=== PATIENT | male | born 1995 | race Caucasian/White ===

== ENCOUNTER 2025-07-11 20:18 | Emergency (ER) | payer MEDICAID ==
[~2025-07-11] VITALS: Ht 177.8 cm; Wt 90.1 kg
[~2025-07-11 20:18] MED LIST: ALBU10.7 IH; BUDE10.7 INH; LEXA5TAB13 PO; ONDA-83 PO; OXYC1TAB23 PO; TRAZ1TAB10 PO; TUMS500C PO; VENTAER INH
[2025-07-11] MEDS ORDERED: IPRATROPIUM 0.5 MG/ALBUTEROL 2.5 MG INH SOL UD 3 ML As Ordered ONE (20:56)
[2025-07-11] MEDS: IPRATROPIUM 0.5 MG/ALBUTEROL 2.5 MG INH SOL UD 3 ML NEB ONE ×2 (21:09→21:13)
[2025-07-11] MEDS ORDERED: ONDANSETRON 4MG/2ML VIAL As Ordered ONE (21:09)
[2025-07-11] MEDS: ACETAMINOPHEN *IV* 1,000 MG in IV 1 EA IV ONE (21:09)
[2025-07-11] MEDS: NS (Normal Saline) 0.9% 1,000 ML IV ONE (21:09)
[2025-07-11] MEDS: ONDANSETRON 4MG/2ML VIAL IV ONE (21:12)
[2025-07-11 21:34] LABS: KETONE, URINE AUTO RFX NEGATIVE (NEGATIVE); MUCUS, URINE RFX SMALL (NEGATIVE); NITRITE, URINE AUTO RFX NEGATIVE (NEGATIVE); RBC, URINE AUTO RFX TNTC /HPF (0-3); SQUAM EPITHELIAL CELL UR AURFX 0 /HPF (0-6)
[2025-07-11 21:35] LABS: LEUKOCYTE ESTERASE UR AUTO RFX 1+ (NEGATIVE); WBC, URINE AUTO RFX 14 /HPF (0-3)
[2025-07-11 21:39] LABS: BASO # 0.0 10^3/uL (0.0-0.2); BASO % 0.3 % (0.0-1.0); EOS # 0.1 10^3/uL (0.0-0.5); EOS % 1.3 % (0.0-3.0); LYMPH # 0.7 10^3/uL (1.5-5.0); LYMPH % 9.9 % (24.0-44.0); MONO # 0.9 10^3/uL (0.0-0.8); MONO % 13.1 % (2.0-8.0); NEUTROPHILS # 5.2 10^3/uL (1.5-8.5); NEUTROPHILS % 75.0 % (36.0-66.0); PLATELET COUNT, AUTOMATED 295 10^3/uL (150-450)
[2025-07-11 21:58] LABS: ALT/SGPT 17 U/L (7.0-40); AST/SGOT 15 U/L (<34); CALCIUM LEVEL 9.1 MG/DL (8.5-10.1); CARBON DIOXIDE LEVEL 20 MMOL/L (20-31); CHLORIDE LEVEL 106 MMOL/L (98-107); CREATININE FOR GFR 1.11 MG/DL (0.70-1.30); GLOMERULAR FILTRATION RATE > 90.0 (>60); POTASSIUM SERUM 3.5 MMOL/L (3.5-5.1); SODIUM LEVEL 138 MMOL/L (136-145)
[2025-07-11] MEDS ORDERED: PRED20TA PO (22:28)
[2025-07-11] MEDS ORDERED: OSEL75CA PO (22:28)
[2025-07-11] MEDS: OSELTAMIVIR PHOSPHATE 75 MG CAP PO ONE (22:59)
[2025-07-11] MEDS ORDERED: IPRA0.00 NEB (23:04)
[2025-07-11 23:18] VITALS: BP 120/69; TEMP 98.7; O2SAT 91
== END 2025-07-11 23:29 | disposition home or self-care (01) ==
LOC: M ED 20:18
DX: J09.X2 Influenza due to identified novel influenza A virus with other respiratory manifestations (principal); J45.901 Unspecified asthma with (acute) exacerbation; F32.A Depression, unspecified; Z79.899 Other long term (current) drug therapy
CPT/HCPCS: 71045; 80053; 81001; 83605; 85025; 87040; 87086; 87486; 87581; 87633; 87798; 94640; 96365; 96375; 99284; J0134; J1100; J2405